=== PATIENT | female | born 1955 | race Two or more races ===

== ENCOUNTER 2016-06-26 13:08 | Emergency (ER) | payer OTHER ==
[2016-06-26 13:23] VITALS: BMI 18.8
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
[2016-06-26] MEDS ORDERED: SODIUM CHLORIDE 1,000 ML IV ONE (16:12)
[2016-06-26 23:26] VITALS: BP 132/71; PULSE 98; TEMP 98
== END 2016-06-26 23:36 | disposition home or self-care (01) ==
LOC: JER 13:08
PROC: 3E0337Z Introduction of Electrolytic and Water Balance Substance into Peripheral Vein, Percutaneous Approach (ICD-10-PCS; principal; 2016-06-26)
DX: T33.822A Superficial frostbite of left foot, initial encounter (principal); T33.821A Superficial frostbite of right foot, initial encounter; X31.XXXA Exposure to excessive natural cold, initial encounter; Y93.89 Activity, other specified; Y92.009 Unspecified place in unspecified non-institutional (private) residence as the place of occurrence of the external cause
CPT/HCPCS: 75635-TC; 96360; 99282-25

== ENCOUNTER 2016-10-29 07:43 | Day surgery (SDC) | payer OTHER ==
[2016-10-29 06:45] VITALS: BMI 19.7
[2016-10-29 06:57] VITALS: TEMP 98.6
--- NOTE | 2016-10-29 07:35 | PN ---
Progress Note (short form) - Note Progress Note: PRE OP NOTE S/ Patient for Transmetatrsal amputation and Tendo Achilles lengthening all Left foot secondary to gangrene. Patient has no new complaints today O/ VSS in NAD A/A/Ox3 Left foot: + Dry gangrene Left fore foot full thickness well demarcated A/ Dry gangrene Left foot secondary to prolong exposure to cold P/ 1) Nothing new in H&P since last visit 2) Patietn expalined the need for procedure as well as associted risks no gurantess given or implied and the need for possible future surgery explained, after all aptietns questions answered to her satisfaction consent obtained 3) Patient to the OR
[2016-10-29] MEDS ORDERED: ceFAZolin SODIUM 1 GM VIAL IVPB ONE (08:09)
[2016-10-29] MEDS ORDERED: LIDOCAINE HCL 2% (50ML VIAL) INF ONE (08:10)
[2016-10-29] MEDS ORDERED: LIDOCAINE 1%/EPI 1:100000 (50 ML MULTI DOSE VIAL) INF ONE (08:10)
[2016-10-29] MEDS ORDERED: BUPIVACAINE HCL/PF (5 MG/ML) 30 ML VIAL IJ ONE (08:38)
[2016-10-29] MEDS ORDERED: ACETAMINOPHEN WITH CODEINE 300MG/30MG TABLET PO PRN ×2 (08:49→09:12)
--- NOTE | 2016-10-29 10:09 | OP ---
Operative Note - Note: Operative Date: 10/29/16 Pre-Operative Diagnosis: Gangrene Left foot Operation: Trans Metatarsal Amputation, LEFT foot Findings: Full thickness well demarcated Gangrene of the entire fore foot Left Post-Operative Diagnosis: Same as Pre-op Surgeon: Guzman Stafford Anesthesiologist/PROFILER: Ash Benjamin Anesthesia: MAC Specimens Removed: Bone & Soft tissue Estimated Blood Loss (mls): 50 Fluid Volume Replaced (mls): 600 Operative Report Dictated: Yes
[2016-10-29 12:07] VITALS: BP 114/64; PULSE 54
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
--- NOTE | 2016-10-31 13:04 | PATH ---
Surgical Pathology Report Patient Name: REGGIE FORTUNE [facility]. Rec. #: [id number] /Age/Gender: 1955 (Age: 61) / F Account: [id number] Location: [facility] Taken: 10/29/2016 Received: 10/29/2016 Reported: 10/31/2016 Physicians: Guzman Stafford DPM Specimen(s) Received LEFT FOOT TANSMETATARSAL AMPUTATION Clinical History Gangrene left toes Final Diagnosis FOOT, LEFT, TRANSMETATARSAL AMPUTATION: SKIN, UNDERLYING SOFT TISSUE AND BONE WITH GANGRENOUS NECROSIS. SKIN AND SOFT TISSUE AT RESECTION MARGIN APPEAR VIABLE WITH CHRONIC ISCHEMIC CHANGES AND CHRONIC INFLAMMATION. BONES AT RESECTION MARGIN APPEAR VIABLE. Electronically Signed Reinaldo Gunter M.D. Gross Description Received in formalin labeled "left foot transmetatarsal amputation" is a 9.5 x 6.5 x 3.3 cm transmetatarsal amputation specimen. The epidermal surface displays a 6.7 x 4.3 cm black-price, gangrenous lesion involving all 5 digits. The lesion focally extends to 0.4 cm from the skin and soft tissue margin. The lesion involves the underlying bone. Separately received within the same container is an 8.0 x 3.0 x 2.2 cm portion of 5 metatarsal bones, corresponding with the amputation specimen and consistent with true bone margins. C[employer] sections are submitted in 7 cassettes as follows: 1-lesion with underlying bone, following decalcification; 2-skin and soft tissue margin; 3-bone margin from first metatarsal, following decalcification; 4-bone margin from second metatarsal, following decalcification; 5-bone margin from third metatarsal, following decalcification; 6-bone margin from fourth metatarsal, following decalcification; 7-bone margin from fifth metatarsal, following decalcification. 10/30/201610/30/2016
== END 2016-10-29 12:16 ==
LOC: JASU-SURG 07:43
PROVIDERS: ATTEND Podiatrist Foot & Ankle Surgery
PROC: 0Y6N0ZB Detachment at Left Foot, Partial 2nd Ray, Open Approach (ICD-10-PCS; 2016-10-29)
PROC: 0Y6N0ZC Detachment at Left Foot, Partial 3rd Ray, Open Approach (ICD-10-PCS; 2016-10-29)
PROC: 0Y6N0ZD Detachment at Left Foot, Partial 4th Ray, Open Approach (ICD-10-PCS; 2016-10-29)
PROC: 0Y6N0ZF Detachment at Left Foot, Partial 5th Ray, Open Approach (ICD-10-PCS; 2016-10-29)
PROC: 0Y6N0Z9 Detachment at Left Foot, Partial 1st Ray, Open Approach (ICD-10-PCS; principal; 2016-10-29 08:00)
DX: I96 Gangrene, not elsewhere classified (principal)
CPT/HCPCS: 88305-TC; 88311-TC